=== PATIENT | male | born 1965 | race Caucasian/White ===

== ENCOUNTER 2017-11-21 21:48 | Emergency (ER) | payer OTHER ==
--- NOTE | 2017-11-21 22:14 | EDM.PDOC ---
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 Review of systems: As per history of present illness and below otherwise all systems reviewed and negative. Past medical history: As per history of present illness and as reviewed below otherwise noncontributory. Surgical history: As per history of present illness and as reviewed below otherwise noncontributory. Social history: No reported history of drug or alcohol abuse. Family history: As per history of present illness and as reviewed below otherwise noncontributory. Physical exam: HEENT: Atraumatic, normocephalic, pupils reactive, negative for conjunctival pallor or scleral icterus, mucous membranes moist, throat clear, neck supple, nontender, trachea midline. Lungs: Clear to auscultation, breath sounds equal bilaterally, chest nontender. Heart: S1S2, regular, negative for clicks, rubs, or JVD. Abdomen: Soft, nondistended, nontender. Negative for masses or hepatosplenomegaly. Negative for costovertebral tenderness. Pelvis: Stable nontender. Genitourinary: Deferred. Rectal: Deferred. Extremities: Tenderness left shoulder palpation is nonlocalized without crepitation is limited range of motion secondary to pain neurovascular exam is unremarkable Neuro: Awake, alert, oriented. Cranial nerves II through XII unremarkable. Cerebellum unremarkable. Motor and sensory unremarkable throughout. Exam nonfocal. Diagnostics: X-ray left shoulder Therapeutics: Sling Impression: #1 acute left shoulder pain/injury #2 remote history of rotator cuff surgery Definitive disposition and diagnosis as appropriate pending reevaluation and review of above. - Related Data Allergies Allergy/AdvReac Type Severity Reaction Status Date / Time IVP Dye Allergy Anaphylactic Uncoded 11/21/17 23:00 Shock Home Meds: Home Meds . [No Known Home Meds] 11/21/17 [History] ED ROS GENERAL - Review of Systems Review Of Systems: ROS reveals no pertinent complaints other than HPI. ED EXAM, GENERAL - Physical Exam Exam: See Below (See dictation) Course - Vital Signs Last Recorded V/S: Last Vital Signs Temp 36.3 C 11/21/17 23:10 Pulse 83 11/21/17 23:10 Resp 20 11/21/17 23:10 BP 128/72 11/21/17 23:10 Pulse Ox 95 11/21/17 23:10 - Orders/Labs/Meds Orders: Active Orders 24 hr Category Date Time Status Shoulder Comp Lt [CR] Stat Exams 11/21/17 22:11 Taken Departure - Departure Time of Disposition: 23:38 Disposition: Home, Self-Care 01 Condition: Good Clinical Impression: Injury of left shoulder - Discharge Information Referrals: PCP,None [Primary Care Provider] - Additional Instructions: The following information is given to patients seen in the emergency department who are being discharged to home. This information is to outline your options for follow-up care. We provide all patients seen in our emergency department with a follow-up referral. The need for follow-up, as well as the timing and circumstances, are variable depending upon the specifics of your emergency department visit. If you don't have a primary care physician on staff, we will provide you with a referral. We always advise you to contact your personal physician following an emergency department visit to inform them of the circumstance of the visit and for follow-up with them and/or the need for any referrals to a consulting specialist. The emergency department will also refer you to a specialist when appropriate. This referral assures that you have the opportunity for followup care with a specialist. All of these measure are taken in an effort to provide you with optimal care, which includes your followup. Under all circumstances we always encourage you to contact your private physician who remains a resource for coordinating your care. When calling for followup care, please make the office aware that this follow-up is from your recent emergency room visit. If for any reason you are refused follow-up, please contact the [facility] emergency department at and asked to speak to the emergency department charge nurse. [facility] - Orth[facility] Professional [address], [address] [place] [address] Sling as directed Motrin/Tylenol as directed follow-up orthopedic surgery as discussed return as needed as discussed - My Orders Last 24 Hours: My Active Orders 11/21/17 22:11 Shoulder Comp Lt [CR] Stat - Assessment/Plan Last 24 Hours: My Active Orders 11/21/17 22:11 Shoulder Comp Lt [CR] Stat
--- NOTE | 2017-11-24 11:42 | CR ---
EXAM DATE: 11/21/17 PATIENT'S AGE: 52 Patient: QUYEN MCDOWELL Facility: [place], [place] Site . Site : [id number] Study: XRay Shoulder Left [id number]/27/2018 11:04:47 PM Ordering Physician: Riki Nieves Final Report: Indication: Pain, no injury Technique: Three views left shoulder Comparison: None Findings: Bones: There are surgical anchors in the left glenoid. Alignment is normal. No fractures or bone lesions. Joint spaces: Unremarkable. Soft tissues: Unremarkable. Impression: Postsurgical changes in the left glenoid. No acute osseous abnormality. No significant degenerative disease. Dictated by Monserrat Holcomb MD @ Nov 21 2017 11:24PM (Electronic Signature) Report Signed by Proxy. AVERY
== END 2017-11-21 23:50 | disposition home or self-care (01) ==
LOC: MW.ED 21:48
DX: S49.92XA Unspecified injury of left shoulder and upper arm, initial encounter (principal); Z91.041 Radiographic dye allergy status; X58.XXXA Exposure to other specified factors, initial encounter
CPT/HCPCS: 73030-26-LT; 73030-LT; 99284